=== PATIENT | male | born 1975 ===

== ENCOUNTER 2023-12-12 12:32 | Emergency (ER) | payer SELFPAY ==
[2023-12-12] MEDS: Diphtheria,Pertussis(Acell),Tetanus Vaccine 0.5 ML Syringe IM ONE (16:25)
[2023-12-12] MEDS: Take Home: Cephalexin 500 MG Cap, 6 Cap Pack PO ONE (16:25)
== END 2023-12-12 16:31 | disposition home or self-care (01) ==
LOC: DL.ED 12:32
DX: S61.211A Laceration without foreign body of left index finger without damage to nail, initial encounter (principal); Z23 Encounter for immunization; Z86.16 Personal history of COVID-19; W27.1XXA Contact with garden tool, initial encounter
CPT/HCPCS: 90471; 90715; 99282; A9270